=== PATIENT | male | born 1945 | race Caucasian/White ===

== ENCOUNTER 2017-08-24 14:09 | Emergency (ER) | payer MEDICARE, OTHER ==
--- NOTE | 2017-08-24 17:37 | ED ---
Throat Pain/Nasal Congestion - HPI Summary HPI Summary: 71 male presents to ED with complaints of dysphagia and pain with swallowing after eating food, that has been ongoing for the past 3 weeks. Patient states he was seen in ER in [place] last week for same issue, had multiple tests done without emergent findings. Has a schedule paneedeoscopy with Dr Dickens, GI specialist this thursday08/26/17. Patient spoke with Dr Dickens this morning due to having symptoms bad last night, that have however resolved, and was told to go to the ER to get endoscopy. Patient is currently asymptomatic, swallowing saliva without issue and fluids. Has not tried to eat solid foods today. No other complaints. No difficulty breathing or chest pain. PMHx significant for aortic valve dysfunction, glaucoma and HTN. - History of Current Complaint Chief Complaint: EDGeneral Time Seen by Provider: 08/24/17 14:59 Hx Obtained From: Patient Onset/Duration: Sudden Onset, Lasting Weeks, Resolved Severity: Moderate Associated Signs And Symptoms: Positive: Dysphagia Cough: None - Epiglottits Risk Factors Epiglottis Risk Factors: Negative - Allergies/Home Medications Allergies/Adverse Reactions: Allergies Allergy/AdvReac Type Severity Reaction Status Date / Time No Known Allergies Allergy Verified 06/01/13 15:31 PMH/Surg Hx/FS Hx/Imm Hx Endocrine/Hematology History: Denies: Hx Diabetes Cardiovascular History: Reports: Hx Hypertension, Hx Valvular Heart Disease Respiratory History: Denies: Hx Asthma Sensory History: Reports: Hx Contacts or Glasses, Hx Glaucoma Opthamlomology History: Reports: Hx Contacts or Glasses - Surgical History Surgery Procedure, Year, and Place: n/a - Immunization History Immunizations Up to Date: Yes Infectious Disease History: No Infectious Disease History: Denies: Traveled Outside the [place] in Last 30 Days - Family History Known Family History: Positive: Cardiac Disease - Social History Alcohol Use: None Substance Use Type: Reports: None Smoking Status (MU): Never Smoked Tobacco Review of Systems Constitutional: Negative Positive: Other - dysphagia with pain when eating solid food Cardiovascular: Negative Positive: Other Respiratory: Negative Musculoskeletal: Negative All Other Systems Reviewed And Are Negative: Yes Physical Exam Triage Information Reviewed: Yes Vital Signs On Initial Exam: Initial Vitals Temp Pulse Resp BP Pulse Ox 98.7 F 64 18 115/74 99 08/24/17 14:42 08/24/17 14:42 08/24/17 14:42 08/24/17 14:42 08/24/17 14:42 Vital Signs Reviewed: Yes Appearance: Positive: Well-Appearing, No Pain Distress, Well-Nourished Skin: Positive: Warm, Skin Color Reflects Adequate Perfusion, Dry. Negative: Cold, Cyanosis @, Pale, Erythema @ Head/Face: Positive: Normal Head/Face Inspection Eyes: Positive: Conjunctiva Clear ENT: Positive: Normal ENT inspection, Hearing grossly normal, Pharynx normal, Uvula midline, Other - patent airway. Negative: Tonsillar swelling, Tonsillar exudate, Trismus, Hoarse voice Neck: Positive: Supple, Nontender, No Lymphadenopathy Respiratory/Lung Sounds: Positive: Clear to Auscultation, Breath Sounds Present. Negative: Rales, Rhonchi, Wheezes Cardiovascular: Positive: Normal, RRR, Pulses are Symmetrical in both Upper and Lower Extremities, Murmur - systolic grade III. Negative: Rub Abdomen Description: Positive: Nontender, No Organomegaly, Soft Bowel Sounds: Positive: Present Musculoskeletal: Positive: Normal, Strength/ROM Intact Neurological: Positive: Normal, Sensory/Motor Intact, Alert, Oriented to Person Place, Time - [place] Coma Scale Coma Scale Total: 15 Diagnostics - Vital Signs Vital Signs Temp Pulse Resp BP Pulse Ox 08/24/17 14:42 98.7 F 64 18 115/74 99 - Laboratory Lab Statement: Any lab studies that have been ordered have been reviewed, and results considered in the medical decision making process. 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 Spoke about transferring patient to [facility], discussed this option with patient who refused at this time. Patient was asymptomatic, swallowing saliva, did not appear to have any emergent etiology requiring emergent treatment at this time. Patient will continue to have fair-endoscopy with Dr Dickens on Thursday08/26/17. Aware of the signs and symptoms that he should return to any ER, such as unable to swallow saliva or any liquids. No other concerns at this time. Patient agrees and understands plan after thouroughly discussed. No abnormal PE findings or vitals signs. - Differential Diagnoses Differential Diagnoses: Other - dysphagia, esophagel spasm, hiatal hernia - Diagnoses Provider Diagnoses: Dysphagia - Provider Notifications Discussed Care Of Patient With: Dr Dickens Time Discussed With Above Provider: 17:15 Discharge - Discharge Plan Condition: Stable Disposition: HOME Patient Education Materials: Dysphagia (ED) Referrals: Naomi Gonzalez MD [Primary Care Provider] - Marky Dickens MD [Medical Doctor] - Additional Instructions: Please go to your scheduled appointment on Thursday for panendoscopy. Any new or worsening symptoms, such as inability to swallow liquids or saliva please return to ER.
[2017-08-24 17:54] VITALS: BP 110/78
== END 2017-08-24 17:54 | disposition home or self-care (01) ==
LOC: ED 14:09
DX: R13.10 Dysphagia, unspecified (principal)
CPT/HCPCS: 99281

== ENCOUNTER 2017-11-05 14:25 | Emergency (ER) | payer MEDICARE ==
[2017-11-05 15:05] LABS: ABS Basophils 0.1 10^3/ul (0-0.2); ABS Eosinophils 0.8 10^3/ul (0-0.6); ABS Lymphocytes 1.5 10^3/ul (1.0-4.8); ABS Monocytes 0.5 10^3/ul (0-0.8); ABS Nucleated RBC 0 10^3/ul; Eosinophil % 13.3 % (0-6); Hematocrit 32 % (42-52); Hemoglobin 10.8 g/dl (14.0-18.0); Lymphocyte % 26.2 % (25-47); Mean Corpuscular HGB Conc 33 g/dl (31-36); Mean Corpuscular Hemoglobin 31 pg (27-31); Mean Corpuscular Volume 94 fL (80-94); Mean Platelet Volume 8 um3 (7.4-10.4); Nucleated Red Blood Cells % 0; Platelet Count 228 10^3/ul (150-450); Red Blood Count 3.44 10^6/ul (4.0-5.4); Red Cell Distribution Width 14 % (10.5-15); White Blood Count 5.8 10^3/ul (3.5-10.8)
[2017-11-05 15:20] LABS: INR 0.94 (0.77-1.02)
--- NOTE | 2017-11-05 15:32 | RAD ---
HISTORY: Chest pain COMPARISONS: None VIEWS: 4: Frontal dual-energy and lateral views of the chest. FINDINGS: CARDIOMEDIASTINAL SILHOUETTE: The cardiomediastinal silhouette is normal. A prosthetic heart valve is noted. GIANLUCA: The gianluca are normal. PLEURA: The costophrenic angles are sharp. No pleural abnormalities are noted. LUNG PARENCHYMA: The lungs are clear. ABDOMEN: The upper abdomen is clear. There is no subphrenic gas. BONES AND SOFT TISSUES: The patient is status post median sternotomy. There is a scoliotic curvature of the spine. Degenerative changes are noted. OTHER: None. IMPRESSION: NO ACTIVE CARDIOPULMONARY DISEASE.
[2017-11-05 15:37] LABS: EGFR Non-African American 78.9 (>60)
[2017-11-05 17:12] VITALS: BP 118/72
--- NOTE | 2017-11-06 08:23 | ED ---
Anuel Arguello Gabriel, scribed for Moises Terrazas MD on 11/05/17 at 1442 . 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 The patient rates the pain 9/10 in severity. Symptoms alleviated by standing and lying. Patient denies diaphoresis , nausea, and light headedness. Patient was walking and when he sat down to rest he began having CP, upon standing it felt better. Patient had open heart surgery on the 09 of October and has some pain when he sneezes in the surgery area and he sneezed twice prior to this pain. He triple bypass and aortic valve replacement. He takes ASA daily. - History of Current Complaint Chief Complaint: EDChestPainROMI Time Seen by Provider: 11/05/17 14:32 Hx Obtained From: Patient Onset/Duration: Still Present Timing: Constant Initial Severity: Moderate Current Severity: Moderate Pain Intensity: 7 Pain Scale Used: 0-10 Numeric Chest Pain Location: Diffuse Chest Pain Radiates: No Alleviating Factor(s): Upright Position Associated Signs and Symptoms: Positive: Negative - diaphoresis, nausea, and light headedness - Allergy/Home Medications Allergies/Adverse Reactions: Allergies Allergy/AdvReac Type Severity Reaction Status Date / Time No Known Allergies Allergy Verified 06/01/13 15:31 Home Medications: Home Medications Aspirin TAB* [Aspirin 325 MG TAB*] 325 mg PO DAILY 11/05/17 [History Confirmed 11/05/17] Atorvastatin* [Lipitor*] 20 mg PO DAILY 11/05/17 [History Confirmed 11/05/17] Fexofenadine HCl [Allergy Relief] 180 mg PO DAILY 11/05/17 [History Confirmed ] Folic Acid TAB* [Folvite TAB*] 1 mg PO DAILY 11/05/17 [History Confirmed ] Metoprolol Tartrate TAB* [Lopressor TAB*] 12.5 mg PO DAILY 11/05/17 [History Confirmed 11/05/17] Potassium Chlor TAB* [Klor Con ER TAB*] 10 meq PO DAILY 11/05/17 [History Confirmed 11/05/17] Tamsulosin CAP* [Flomax CAP*] 0.4 mg PO DAILY 11/05/17 [History Confirmed ] PMH/Surg Hx/FS Hx/Imm Hx Endocrine/Hematology History: Denies: Hx Diabetes Cardiovascular History: Reports: Hx Hypertension, Hx Valvular Heart Disease Respiratory History: Denies: Hx Asthma Sensory History: Reports: Hx Contacts or Glasses, Hx Glaucoma Opthamlomology History: Reports: Hx Contacts or Glasses, Hx Glaucoma - Surgical History Surgery Procedure, Year, and Place: n/a Infectious Disease History: No Infectious Disease History: Denies: Traveled Outside the [place] in Last 30 Days - Family History Known Family History: Positive: Cardiac Disease Negative: Renal Disease, Respiratory Disease, Seizure Disorder - Social History Lives: With Family Alcohol Use: None Substance Use Type: Reports: None Smoking Status (MU): Never Smoked Tobacco Review of Systems Negative: Skin Diaphoresis Positive: Chest Pain Negative: Nausea Neurological: Negative - light headedness All Other Systems Reviewed And Are Negative: Yes Physical Exam - Summary Physical Exam Summary: VITAL SIGNS: Reviewed. GENERAL: Patient is a well-developed and nourished male who is lying comfortable in the stretcher. Patient is not in any acute respiratory distress. HEAD AND FACE: No signs of trauma. No ecchymosis, hematomas or skull depressions. No sinus tenderness. EYES: PERRLA, EOMI x 2, No injected conjunctiva, no nystagmus. EARS: Hearing grossly intact. Ear canals and tympanic membranes are within normal limits. MOUTH: Oropharynx within normal limits. NECK: Supple, trachea is midline, no adenopathy, no JVD, no carotid bruit, no c- spine tenderness, neck with full ROM. CHEST: Symmetric, no tenderness at palpation LUNGS: Clear to auscultation bilaterally. No wheezing or crackles. CVS: Regular rate and rhythm, S1 and S2 present, no murmurs or gallops appreciated. ABDOMEN: Soft, non-tender. No signs of distention. No rebound no guarding, and no masses palpated. Bowel sounds are normal. There is a scar on his chest that is clean, dry, and well healing. EXTREMITIES: FROM in all major joints, no edema, no cyanosis or clubbing. NEURO: Alert and oriented x 3. No acute neurological deficits. Speech is normal and follows commands. SKIN: Dry and warm Triage Information Reviewed: Yes Vital Signs On Initial Exam: Initial Vitals Temp Pulse Resp BP Pulse Ox 98.4 F 93 20 126/69 100 11/05/17 14:26 11/05/17 14:26 11/05/17 14:26 11/05/17 14:26 11/05/17 14:26 Vital Signs Reviewed: Yes Diagnostics - Vital Signs Vital Signs Temp Pulse Resp BP Pulse Ox 11/05/17 14:26 98.4 F 93 20 126/69 100 - Laboratory Lab Results: Lab Results 11/05/17 11/05/17 11/05/17 Range/Units 14:56 14:56 14:56 WBC 5.8 (3.5-10.8) 10^3/ul RBC 3.44 L (4.0-5.4) 10^6/ul Hgb 10.8 L (14.0-18.0) g/dl Hct 32 L (42-52) % MCV 94 (80-94) fL MCH 31 (27-31) pg MCHC 33 (31-36) g/dl RDW 14 (10.5-15) % Plt Count 228 (150-450) 10^3/ul MPV 8 (7.4-10.4) um3 Neut % (Auto) 51.3 (38-83) % Lymph % (Auto) 26.2 (25-47) % [place] % (Auto) 8.2 (1-9) % Eos % (Auto) 13.3 H (0-6) % Baso % (Auto) 1.0 (0-2) % Absolute Neuts (auto) 3.0 (1.5-7.7) 10^3/ul Absolute Lymphs (auto) 1.5 (1.0-4.8) 10^3/ul Absolute Monos (auto) 0.5 (0-0.8) 10^3/ul Absolute Eos (auto) 0.8 H (0-0.6) 10^3/ul Absolute Basos (auto) 0.1 (0-0.2) 10^3/ul Absolute Nucleated RBC 0 10^3/ul Nucleated RBC % 0 INR (Anticoag Therapy) (0.77-1.02) APTT (26.0-36.3) seconds Sodium 136 (133-145) mmol/L Potassium TNP Chloride 103 (101-111) mmol/L Carbon Dioxide 27 (22-32) mmol/L Anion Gap 6 (2-11) mmol/L BUN 14 (6-24) mg/dL Creatinine 0.94 (0.67-1.17) mg/dL Est GFR ( Amer) 101.5 (>60) Est GFR (Non-Af Amer) 78.9 (>60) BUN/Creatinine Ratio 14.9 (8-20) Glucose 115 H (70-100) mg/dL Lactic Acid (0.5-2.0) mmol/L Calcium 9.2 (8.6-10.3) mg/dL Magnesium 2.5 (1.9-2.7) mg/dL Total Bilirubin 0.30 (0.2-1.0) mg/dL AST TNP ALT 10 (7-52) U/L Alkaline Phosphatase 60 (34-104) U/L Total Creatine Kinase 56 (10-223) U/L CK-MB (CK-2) 1.8 (0.6-6.3) ng/mL Troponin I 0.01 (<0.04) ng/mL B-Natriuretic Peptide 152 H ( - 100) pg/mL Total Protein 6.6 (6.4-8.9) g/dL Albumin 3.6 (3.2-5.2) g/dL Globulin 3.0 (2-4) g/dL Albumin/Globulin Ratio 1.2 (1-3) TSH 1.39 (0.34-5.60) mcIU/mL 11/05/17 11/05/17 11/05/17 Range/Units 14:56 14:56 15:48 WBC (3.5-10.8) 10^3/ul RBC (4.0-5.4) 10^6/ul Hgb (14.0-18.0) g/dl Hct (42-52) % MCV (80-94) fL MCH (27-31) pg MCHC (31-36) g/dl RDW (10.5-15) % Plt Count (150-450) 10^3/ul MPV (7.4-10.4) um3 Neut % (Auto) (38-83) % Lymph % (Auto) (25-47) % [place] % (Auto) (1-9) % Eos % (Auto) (0-6) % Baso % (Auto) (0-2) % Absolute Neuts (auto) (1.5-7.7) 10^3/ul Absolute Lymphs (auto) (1.0-4.8) 10^3/ul Absolute Monos (auto) (0-0.8) 10^3/ul Absolute Eos (auto) (0-0.6) 10^3/ul Absolute Basos (auto) (0-0.2) 10^3/ul Absolute Nucleated RBC 10^3/ul Nucleated RBC % INR (Anticoag Therapy) 0.94 (0.77-1.02) APTT 28.3 (26.0-36.3) seconds Sodium (133-145) mmol/L Potassium 4.0 Chloride (101-111) mmol/L Carbon Dioxide (22-32) mmol/L Anion Gap (2-11) mmol/L BUN (6-24) mg/dL Creatinine (0.67-1.17) mg/dL Est GFR ( Amer) (>60) Est GFR (Non-Af Amer) (>60) BUN/Creatinine Ratio (8-20) Glucose (70-100) mg/dL Lactic Acid 1.1 (0.5-2.0) mmol/L Calcium (8.6-10.3) mg/dL Magnesium (1.9-2.7) mg/dL Total Bilirubin (0.2-1.0) mg/dL AST 15 ALT (7-52) U/L Alkaline Phosphatase (34-104) U/L Total Creatine Kinase (10-223) U/L CK-MB (CK-2) (0.6-6.3) ng/mL Troponin I (<0.04) ng/mL B-Natriuretic Peptide ( - 100) pg/mL Total Protein (6.4-8.9) g/dL Albumin (3.2-5.2) g/dL Globulin (2-4) g/dL Albumin/Globulin Ratio (1-3) TSH (0.34-5.60) mcIU/mL 11/05/17 Range/Units 17:25 WBC (3.5-10.8) 10^3/ul RBC (4.0-5.4) 10^6/ul Hgb (14.0-18.0) g/dl Hct (42-52) % MCV (80-94) fL MCH (27-31) pg MCHC (31-36) g/dl RDW (10.5-15) % Plt Count (150-450) 10^3/ul MPV (7.4-10.4) um3 Neut % (Auto) (38-83) % Lymph % (Auto) (25-47) % [place] % (Auto) (1-9) % Eos % (Auto) (0-6) % Baso % (Auto) (0-2) % Absolute Neuts (auto) (1.5-7.7) 10^3/ul Absolute Lymphs (auto) (1.0-4.8) 10^3/ul Absolute Monos (auto) (0-0.8) 10^3/ul Absolute Eos (auto) (0-0.6) 10^3/ul Absolute Basos (auto) (0-0.2) 10^3/ul Absolute Nucleated RBC 10^3/ul Nucleated RBC % INR (Anticoag Therapy) (0.77-1.02) APTT (26.0-36.3) seconds Sodium (133-145) mmol/L Potassium Chloride (101-111) mmol/L Carbon Dioxide (22-32) mmol/L Anion Gap (2-11) mmol/L BUN (6-24) mg/dL Creatinine (0.67-1.17) mg/dL Est GFR ( Amer) (>60) Est GFR (Non-Af Amer) (>60) BUN/Creatinine Ratio (8-20) Glucose (70-100) mg/dL Lactic Acid (0.5-2.0) mmol/L Calcium (8.6-10.3) mg/dL Magnesium (1.9-2.7) mg/dL Total Bilirubin (0.2-1.0) mg/dL AST ALT (7-52) U/L Alkaline Phosphatase (34-104) U/L Total Creatine Kinase (10-223) U/L CK-MB (CK-2) (0.6-6.3) ng/mL Troponin I 0.01 (<0.04) ng/mL B-Natriuretic Peptide ( - 100) pg/mL Total Protein (6.4-8.9) g/dL Albumin (3.2-5.2) g/dL Globulin (2-4) g/dL Albumin/Globulin Ratio (1-3) TSH (0.34-5.60) mcIU/mL Result Diagrams: 11/05/17 14:56 11/05/17 15:48 Lab Statement: Any lab studies that have been ordered have been reviewed, and results considered in the medical decision making process. - Radiology CXR Radiology Interpretation Completed By: Radiologist - no active cardiopulmonary disease ED physician has reviewed this radiology report. 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 The patient rates the pain 9/10 in severity. Symptoms alleviated by standing and lying. Patient denies diaphoresis, nausea, and light headedness. Patient was walking and when he sat down to rest he began having CP, upon standing it felt better. Patient had open heart surgery on the 09 of October and has some pain when he sneezes in the surgery area and he sneezed twice prior to this pain. He triple bypass and aortic valve replacement. He takes ASA daily. An EKG reveals LBBB 88 BPM. CXR reveals, per radiologist, no active cardiopulmonary disease. Test results with no significant abnormalities except for a slight increase in h &h, troponin #1 is 0.01 and troponin #2 is 0.01. Patient continues to be asymptomatic. 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 17:11 We discussed patient care with Dr. Mcdowell, pre press manager and they recommended to discharge the patient because he has an appointment with him tomorrow. We discussed patient care with Dr. Chen and they accepted the patient for admission. Patient will be discharged and follow up from Dr. Mcdowell tomorrow morning. The patient is agreeable with this plan. - Chest Pain Differential Diagnosis/HQI/PQRI: Acute WI, ACS, Angina, CHF, Chest Wall, GI Disease - Diagnoses Provider Diagnoses: Atypical chest pain - Provider Notifications Discussed Care Of Patient With: Beulah Chen Time Discussed With Above Provider: 16:40 Instructed by Provider To: Other - We discussed patient care with Dr. Chen and they accepted the patient for admission. Discharge - Discharge Plan Condition: Stable Disposition: HOME Patient Education Materials: Chest Pain (ED) Referrals: Jeremias FELDMAN,Flako Bajwa [Medical Doctor] - 1 Day Naomi Gonzalez MD [Primary Care Provider] - Additional Instructions: RETURN TO EMERGENCY DEPARTMENT FOR ANY NEW OR WORSENING SYMPTOMS Consult Consult: 17:11 We discussed patient care with Dr. Mcdowell, pre press manager and they recommended to discharge the patient because he has an appointment with him tomorrow. The documentation as recorded by the Anuel soni Gabriel accurately reflects the service I personally performed and the decisions made by me, Moises Terrazas MD.
== END 2017-11-05 17:28 | disposition home or self-care (01) ==
LOC: ED 14:25
DX: R07.89 Other chest pain (principal); I44.7 Left bundle-branch block, unspecified; Z95.2 Presence of prosthetic heart valve; Z95.1 Presence of aortocoronary bypass graft; Z79.82 Long term (current) use of aspirin
CPT/HCPCS: 36415; 71046; 80053; 82550; 82553; 83605; 83735; 83880; 84443; 84484; 85025; 85610; 85730; 93005; 99282

== ENCOUNTER 2018-03-24 16:00 | Emergency (ER) | payer MEDICARE ==
[2018-03-24 16:27] VITALS: BP 118/76
--- NOTE | 2018-03-24 17:13 | UC ---
Skin Complaint HPI - HPI Summary HPI Summary: 72 y/o male presents to the urgent care c/o rash in his left wrist that he noticed Thursday night. It had a black dot, but since he is in Warfarin , he didn' t want to remove it. He thinks it was a tick since it became engorged and then it fell off by itself. Pt denies Hx of tick bite in the past. Pt has PMHX heart surgery and was been on warfarin since 10/2017, He will stop taking it this coming weekend. Pt denies fever, CALRSON, joint pain, abdominal pain, N/V/D, chest pain, or palpitations. - History of Current Complaint Hx Obtained From: Patient Onset/Duration: Gradual Onset, Lasting Days - 2 days, Resolved Skin Exposure Onset/Duration: Days Ago - 2 days Timing: Constant Onset Severity: Mild Current Severity: Mild Pain Intensity: 0 Pain Scale Used: 0-10 Numeric Location: Discrete - left wrist Character: Pruritus, Redness Aggravating Factor(s): Touch Alleviating Factor(s): Nothing Associated Signs & Symptoms: Positive: Rash Related History: Possible Reaction to: Insect <Fransisca Segovia - Last Filed: 03/24/18 17:47> <Irma Mckeon - Last Filed: 03/25/18 07:09> - History of Current Complaint Chief Complaint: [facility] Time Seen by Provider: 03/24/18 17:10 Stated Complaint: BUG BITE ON WRIST - Allergy/Home Medications Allergies/Adverse Reactions: Allergies Allergy/AdvReac Type Severity Reaction Status Date / Time No Known Allergies Allergy Verified 03/24/18 16:27 Review of Systems Constitutional: Negative Skin: Rash - left wrist rash s/p probably tick bite Eyes: Negative ENT: Negative Respiratory: Negative Cardiovascular: Negative Gastrointestinal: Negative Genitourinary: Negative Motor: Negative Neurovascular: Negative Musculoskeletal: Negative Neurological: Negative Psychological: Negative Is Patient Immunocompromised?: No All Other Systems Reviewed And Are Negative: Yes <Fransisca Segovia - Last Filed: 03/24/18 17:47> PMH/Surg Hx/FS Hx/Imm Hx Previously Healthy: Yes Endocrine History: Dyslipidemia Cardiovascular History: Hypertension, Myocardial Infarction - Surgical History Surgical History: Yes Surgery Procedure, Year, and Place: open heart surgery - Family History Known Family History: Positive: Cardiac Disease Negative: Renal Disease, Respiratory Disease, Seizure Disorder - Social History Occupation: Retired Lives: With Family Alcohol Use: Daily Substance Use Type: None Smoking Status (MU): Never Smoked Tobacco <Fransisca Segovia - Last Filed: 03/24/18 17:47> Physical Exam - Summary Physical Exam Summary: Vital Signs Reviewed: Yes General: well developed, well nourished male sitting in the examining table w/o any apparent distress. Eyes: Positive: Conjunctiva Clear - PERRLA, EOMI ENT: Positive: Normal ENT inspection, Hearing grossly normal, Pharynx normal, TMs normal Neck: Positive: Supple, Nontender, No Lymphadenopathy Respiratory: Positive: Chest nontender, Lungs clear, Normal breath sounds Cardiovascular: Positive: RRR, No Murmur, Pulses Normal Abdomen Description: Positive: Nontender, No Organomegaly, Soft. Negative: CVA Tenderness (R), CVA Tenderness (L) Bowel Sounds: Positive: Present Musculoskeletal: Positive: Strength Intact, ROM Intact, No Edema Neurological Exam: Normal Psychological Exam: Normal Skin: Positive: rashes - Proximal medial aspect of Left wrist with tick bite with surrounding erythema, non tender to palpation. tick no longer present, no swelling or drainage observed. Triage Information Reviewed: Yes Vital Signs: Initial Vital Signs Temp 98.6 F 03/24/18 16:24 Pulse 68 03/24/18 16:24 Resp 18 03/24/18 16:24 BP 118/76 03/24/18 16:24 Pulse Ox 100 03/24/18 16:24 <Fransisca Segovia - Last Filed: 03/24/18 17:47> Vital Signs: Initial Vital Signs Temp 98.6 F 03/24/18 16:24 Pulse 68 03/24/18 16:24 Resp 18 03/24/18 16:24 BP 118/76 03/24/18 16:24 Pulse Ox 100 03/24/18 16:24 <Irma Mckeon - Last Filed: 03/25/18 07:09> Course/Dx - Course Course Of Treatment: 72 y/o male presents to the urgent care c/o rash in his left wrist that he noticed Thursday night. It had a black dot, but since he is in Warfarin , he didn't want to remove it. He thinks it was a tick since it became engorged and then it fell off by itself. Pt denies Hx of tick bite in the past. Pt has PMHX heart surgery and was been on warfarin since 10/2017, He will stop taking it this coming weekend. Pt denies fever, CARLSON, joint pain, abdominal pain, N/V/D, chest pain, or palpitations.Hx obtained. Pt w/ probably a tick bite. Antibiotic prophylaxis with Doxycycline given to the patient to prevent lyme Disease.. Pt tolerated well medication. Pt advised to observe the area for the development or Erythema Migrans for upto 30 days following exposure. Advised if he develops fever or erythema Migrans to return to the clinic or PCP or Dr Conner for further treatment .Pt understood and agreed with plan of care. - Differential Diagnoses - Skin Complaint Differential Diagnoses: Abscess, Cellulitis, MRSA, Tick Born Illness, Other - insect bite, bee sting - Diagnoses Provider Diagnoses: 1- left wrist tick bite <Fransisca Segovia - Last Filed: 03/24/18 17:47> Discharge - Sign-Out/Discharge Documenting (check all that apply): Discharge/Admit/Transfer - D/c home - Billing Disposition and Condition Condition: STABLE Disposition: Home <Fransisca Segovia - Last Filed: 03/24/18 17:47> - Billing Disposition and Condition Condition: STABLE Disposition: Home <Irma Mckeon - Last Filed: 03/25/18 07:09> - Discharge Plan Condition: Stable Disposition: HOME Patient Education Materials: Tick Bite (ED) Referrals: [facility] [place] [facility] [Outside] - 2 Days Jonathan Conner MD [Medical Doctor] - If Needed Clive Adamson MD [Primary Care Provider] - 2 Weeks Additional Instructions: 1- Please observe the area for the development or Erythema Migrans for upto 30 days following exposure. Components of the tick saliva can cause transient erythema that should not be confused with Erythema Migrans. If you develop the bull's eye rash, fever, joint pains please return to the urgent care or f/u with your PCP or Dr Wakefield for further management. 2-Antibiotic prophylaxis with Doxycycline was given to you today to prevent lyme Disease. Lyme serology can be drawn in 2 weeks with your PCP to r/o Lyme disease since there is probability of negative results at early exposure. Attestation Statement User Type: Provider - I was available for consult. This patient was seen by the [facility]. The patient was not presented to, seen by, or examined by me. -Wilbert <Irma Mckeon - Last Filed: 03/25/18 07:09>
[2018-03-24] MEDS ORDERED: DOXYcycline CAP(*) 100 MG PO ONE (17:24)
== END 2018-03-24 17:42 | disposition home or self-care (01) ==
LOC: UCEAST 16:00
DX: S60.861A Insect bite (nonvenomous) of right wrist, initial encounter (principal); W57.XXXA Bitten or stung by nonvenomous insect and other nonvenomous arthropods, initial encounter; Y92.9 Unspecified place or not applicable; E78.5 Hyperlipidemia, unspecified; I25.2 Old myocardial infarction; Z79.01 Long term (current) use of anticoagulants
CPT/HCPCS: 99211; A9270-GY; G0463